=== PATIENT | male | born 1940 | race Caucasian/White ===

== ENCOUNTER 2024-01-02 13:34 | Inpatient (IN) | payer OTHER ==
[2024-01-02 15:30] LABS: VENOUS O2 SATURATION 33.4 % (70-80); VENOUS PH 7.247 (7.310-7.410)
[2024-01-02] MEDS: ACETAMINOPHEN 1000 MG/100 ML BAG IVPB ONE (15:30)
[2024-01-02] MEDS: SODIUM CHLORIDE 0.9% 1000 ML INFUS.BAG IV STA (15:31)
[2024-01-02 15:41] LABS: INR 1.06 (0.83-1.09); PROTHROMBIN TIME (PATIENT) 12.2 SEC (9.7-13.0)
[2024-01-02] MEDS: PIPERACILLIN/TAZOB 4.5 GM 4.5 GM in DEXTROSE 5%-WATER 100 ML IVPB ONE (15:48)
[2024-01-02 15:51] LABS: POTASSIUM 4.2 mmol/L (3.5-5.1)
[2024-01-02 15:53] LABS: BLOOD UREA NITROGEN 29.2 mg/dL (7-18); CALCIUM 9.8 mg/dL (8.5-10.1)
[2024-01-02 15:54] LABS: ALBUMIN 3.9 g/dl (3.4-5.0)
[2024-01-02 15:58] LABS: BILIRUBIN,TOTAL 0.6 mg/dL (0.2-1); TOT PROT 7.3 g/dl (6.4-8.2)
[2024-01-02] MEDS: VANCOMYCIN HCL 1,500 MG in DEXTROSE 5%-WATER - 500 ML IVPB ONE (16:03)
[2024-01-02 16:20] LABS: LACTIC ACID 3.3 mmol/L (0.4-2.0)
[2024-01-02 16:28] LABS: BASO % 0.1 % (0-2.0); HEMATOCRIT 41.2 % (35.4-49); HEMOGLOBIN 13.5 GM/dL (11.7-16.9); LYMPH % 3.9 % (8-40); MCH 28.4 pg (25.7-33.7); MCHC 32.7 g/dl (32.0-35.9); MEAN CELL VOLUME 86.9 fl (80-96); MEAN PLT VOLUME 7.6 fl (7.5-11.1); MONO % 7.8 % (3.8-10.2); NEUT % 88.2 % (42.8-82.8); PLATELET COUNT 296 10^3/uL (134-434); RBC 4.75 M/mm3 (4.00-5.60); RDW 14.5 % (11.9-15.9); WHITE BLOOD COUNT 27.6 K/mm3 (4.0-10.0)
[2024-01-02] MEDS: VANCOMYCIN PREMIX 1.5 GM 1,500 MG/300 ML BAG IVPB ONE (16:47)
[2024-01-02 17:36] LABS: ANISOCYTOSIS 1+; MACROCYTOSIS 0; OVALOCYTE 1+
[2024-01-02 17:50] LABS: EPI CELLS 3 /uL (0-25.1); HYALINE CASTS 1 /uL (0-3.1); URINE APPEARANCE CLEAR; URINE BACTERIA 7 /uL (0-1359); URINE BILIRUBIN NEGATIVE (NEGATIVE); URINE COLOR YELLOW; URINE GLUCOSE (UA) 2+ (NEGATIVE); URINE KETONE NEGATIVE (NEGATIVE); URINE LEUK ESTERASE NEGATIVE (NEGATIVE); URINE NITRITE NEGATIVE (NEGATIVE); URINE PROTEIN 1+ (NEGATIVE); URINE RBC 6 /uL (0-23.9); URINE UROBILINOGEN 0.2 mg/dL (0.2-1.0); URINE WBC 19 /uL (0-25.8)
[2024-01-02] MEDS ORDERED: HALOPERIDOL LACTATE 5 MG/ML ONE (18:27)
[2024-01-02] MEDS: HALOPERIDOL LACTATE 5 MG/ML IM ONE ×2 (18:31→18:40)
[2024-01-02 21:08] LABS: LACTIC ACID 3.7 mmol/L (0.4-2.0)
[2024-01-03 03:39] VITALS: BMI 23.1
[2024-01-03] MEDS: HEPARIN NA (PORCINE) 5,000 UNITS/ML 1ML VIAL SQ SCH (06:26)
[2024-01-03] MEDS: SODIUM CHLORIDE 1,000 ML IV SCH (06:28)
[2024-01-03 09:26] LABS: BASO % 0.2 % (0-2.0); EOS % 0.1 % (0-4.5); HEMATOCRIT 38.4 % (35.4-49); HEMOGLOBIN 12.5 GM/dL (11.7-16.9); MCH 28.2 pg (25.7-33.7); MCHC 32.4 g/dl (32.0-35.9); MEAN CELL VOLUME 87.1 fl (80-96); MEAN PLT VOLUME 7.9 fl (7.5-11.1); MONO % 10.9 % (3.8-10.2); NEUT % 74.8 % (42.8-82.8); PLATELET COUNT 274 10^3/uL (134-434); RBC 4.41 M/mm3 (4.00-5.60); RDW 14.1 % (11.9-15.9); WHITE BLOOD COUNT 17.3 K/mm3 (4.0-10.0)
[2024-01-03 09:51] LABS: CALCIUM 9.3 mg/dL (8.5-10.1)
[2024-01-03 09:52] LABS: ALBUMIN 3.4 g/dl (3.4-5.0); BLOOD UREA NITROGEN 30.1 mg/dL (7-18)
[2024-01-03 09:55] LABS: PHOSPHOROUS 2.3 mg/dL (2.5-4.9)
[2024-01-03 09:56] LABS: BILIRUBIN,TOTAL 0.7 mg/dL (0.2-1); TOT PROT 6.5 g/dl (6.4-8.2)
[2024-01-03] MEDS ORDERED: PIPERACILLIN/TAZOB 3.375 GM 3.375 GM in DEXTROSE 5%-WATER - 50 ML IVPB SCH ×2 (13:00→18:00)
[2024-01-03] MEDS: PIPERACILLIN/TAZOB 3.375 GM 3.375 GM in DEXTROSE 5%-WATER - 50 ML IVPB SCH (13:20)
[2024-01-03] MEDS: DEXTROSE 5%-0.45% SALINE 1,000 ML IV SCH ×2 (13:23→17:23)
[2024-01-03] MEDS ORDERED: ALBUTEROL SO4 2.5/IPRATROPIUM 0.5 INH SOL 3 ML VIAL.NEB. NEB PRN (16:09)
[2024-01-03] MEDS: POLYETHYLENE GLYCOL (HEALTHYLAX) 3350 17 GM PACKET PO ONE (17:18)
[2024-01-03] MEDS: ATORVASTATIN CA 80 MG TABLET (FP) PO SCH (21:32)
[2024-01-03] MEDS: EZETIMIBE 10 MG TABLET (FP) PO SCH (21:32)
[2024-01-03] MEDS: LATANOPROST 0.005% OPHTH SOLN 2.5ML BOTTLE OD SCH (21:33)
[2024-01-04 09:15] LABS: BASO % 0.1 % (0-2.0); EOS % 1.1 % (0-4.5); HEMATOCRIT 33.9 % (35.4-49); HEMOGLOBIN 11.4 GM/dL (11.7-16.9); LYMPH % 13.8 % (8-40); MCH 28.9 pg (25.7-33.7); MCHC 33.7 g/dl (32.0-35.9); MEAN CELL VOLUME 85.8 fl (80-96); MEAN PLT VOLUME 7.7 fl (7.5-11.1); MONO % 12.2 % (3.8-10.2); NEUT % 72.8 % (42.8-82.8); PLATELET COUNT 242 10^3/uL (134-434); RBC 3.96 M/mm3 (4.00-5.60); RDW 14.2 % (11.9-15.9); WHITE BLOOD COUNT 11.5 K/mm3 (4.0-10.0)
[2024-01-04 09:44] LABS: POTASSIUM 3.5 mmol/L (3.5-5.1)
[2024-01-04 10:00] LABS: ALBUMIN 2.8 g/dl (3.4-5.0); CALCIUM 8.6 mg/dL (8.5-10.1)
[2024-01-04] MEDS ORDERED: PATIENT'S OWN MEDICATION (NON-FORMULARY) (Dorzolamide/Timolol/Pf [Dorzolamide-Timolol 2%-0 OU SCH (10:00)
[2024-01-04 10:03] LABS: CREATININE 0.6 mg/dL (0.55-1.3)
[2024-01-04 10:05] LABS: BILIRUBIN,TOTAL 0.8 mg/dL (0.2-1); TOT PROT 5.7 g/dl (6.4-8.2)
[2024-01-04] MEDS: TAMSULOSIN HCL 0.4 MG CAP PO SCH (11:11)
[2024-01-04] MEDS: DORZOLAMIDE 2% HCL OPHTHALMIC SOLUTION 10 ML BOTTLE OU SCH (11:11)
[2024-01-04] MEDS: TIMOLOL 0.5% OPHTHALMIC SOL 5 ML BOTTLE OU SCH (11:11)
[2024-01-04] MEDS: ASPIRIN 81 MG CHEWABLE TABLETS PO SCH (11:12)
[2024-01-04] MEDS: PIPERACILLIN/TAZOB 3.375 GM 3.375 GM in DEXTROSE 5%-WATER - 50 ML IVPB SCH (17:29)
[2024-01-04] MEDS: guaiFENesin/D-METHORPHAN HB 10 ML UNIT-DOSE CUPS PO PRN (23:38)
[2024-01-05 18:20] VITALS: TEMP 98.4
[2024-01-05 20:39] VITALS: BP 139/78; PULSE 79; RESP 17
== END 2024-01-05 22:57 | DRG 871 ==
LOC: JER 13:34 → JERBED 18:23 → J4W 01-03 02:32
PROVIDERS: ADMIT Internal Medicine; ATTEND Family Medicine
DX: A41.89 Other specified sepsis (principal); J18.9 Pneumonia, unspecified organism; J96.01 Acute respiratory failure with hypoxia; J96.02 Acute respiratory failure with hypercapnia; E87.20 Acidosis, unspecified; K92.2 Gastrointestinal hemorrhage, unspecified; N17.9 Acute kidney failure, unspecified; I10 Essential (primary) hypertension; E78.5 Hyperlipidemia, unspecified; E11.9 Type 2 diabetes mellitus without complications; H54.8 Legal blindness, as defined in USA; N40.0 Benign prostatic hyperplasia without lower urinary tract symptoms; J45.909 Unspecified asthma, uncomplicated; R00.0 Tachycardia, unspecified; D72.829 Elevated white blood cell count, unspecified
CPT/HCPCS: 0241U-QW; 36415; 71045-TC-FY; 80048; 80053; 81003; 82803; 82962; 83605; 83735; 84100; 84484; 85025; 85610; 85730; 86850; 86900; 86901; 87040; 87086; 87186; 87899; 93005; 93010; 94761; 97116-GP; 97162-GP; 99285-25; J0131; J1644